=== PATIENT | male | born 1985 | race Caucasian/White ===

== ENCOUNTER 2024-02-17 20:38 | Emergency (ER) | payer OTHER ==
--- NOTE | 2024-02-17 20:55 | ED Physician Documentation ---
PD HPI ABD PAIN - Stated complaint Stated Complaint: ABD PX/DIARRHEA - Chief complaint Chief Complaint: Abd Pain - History obtained from History obtained from: Patient - Additional information Additional information: HPI from patient. Patient c/o generalized abdominal pain, diarrhea x 1 week. Pain is described as cramping and without exacerbating/ameliorating factors. Denies fever, denies blood in stool, denies black/tarry stool. Denies h/o similar symptoms. Tmax 99.1. Denies n/v, denies recent abx. Tonight he had stool which is described as nonbloody mucous. He has been tolerating PO without difficulty. Review of Systems Constitutional: denies: Fever, Chills, Sweats Cardiac: reports: Reviewed and negative Respiratory: reports: Reviewed and negative GI: reports: Abdominal Pain, Diarrhea. denies: Abdominal Swelling, Nausea, Vomiting, Constipation PD PAST MEDICAL HISTORY - Past Medical History Past Medical History: No Cardiovascular: None Respiratory: None Neuro: None Endocrine/Autoimmune: None GI: None : None HEENT: None Psych: None Musculoskeletal: None Derm: None - Past Surgical History Past Surgical History: No - Present Medications Home Medications: Ambulatory Orders Medication Instructions Recorded Confirmed No Known Home Medications 02/17/24 02/17/24 - Allergies Allergies/Adverse Reactions: Allergies Allergy/AdvReac Type Severity Reaction Status Date / Time No Known Drug Allergies Allergy Verified 02/17/24 20:49 - Social History Does the pt smoke?: No Smoking Status: Never smoker Does the pt drink ETOH?: Yes Does the pt have substance abuse?: No - Immunizations Immunizations are current?: Yes - POLST Patient has POLST: No PD ED PE NORMAL - Vitals Vital signs reviewed: Yes - General General: Alert and oriented X 3, No acute distress, Well developed/nourished - HEENT HEENT: Moist mucous membranes - Cardiac Cardiac: RRR, No murmur - Respiratory Respiratory: No respiratory distress, Clear bilaterally - Abdomen Abdomen: Normal bowel sounds, Soft, Non tender, Non distended Results - Vitals Vitals: Oxygen O2 Source Room air - Labs Labs: Laboratory Tests 02/17/24 02/17/24 02/17/24 20:40 20:53 20:53 WBC 12.9 H RBC 4.94 Hgb 15.1 Hct 45.3 MCV 91.7 MCH 30.6 MCHC 33.3 RDW 12.2 Plt Count 270 MPV 9.6 Neut # (Auto) 8.7 H Lymph # (Auto) 2.6 [place] # (Auto) 1.1 H Eos # (Auto) 0.4 Baso # (Auto) 0.1 Absolute Nucleated RBC 0.00 Nucleated RBC % 0.0 Sodium 138 Potassium 3.6 Chloride 100 L Carbon Dioxide 33 H Anion Gap 5.0 L BUN 19 Creatinine 1.3 Estimated GFR (MDRD) 62 L Glucose 90 Calcium 9.8 Total Bilirubin 0.3 AST 19 ALT 44 Alkaline Phosphatase 66 Total Protein 7.3 Albumin 4.2 Globulin 3.1 Albumin/Globulin Ratio 1.4 Lipase 25 Urine Color YELLOW Urine Clarity CLEAR Urine pH 6.0 Ur Specific [place] 1.025 Urine Protein NEGATIVE Urine Glucose (UA) NEGATIVE Urine Ketones NEGATIVE Urine Occult Blood NEGATIVE Urine Nitrite NEGATIVE Urine Bilirubin NEGATIVE Urine Urobilinogen 0.2 (NORMAL) Ur Leukocyte Esterase NEGATIVE Ur Microscopic Review NOT INDICATED Urine Culture Comments NOT INDICATED Stl C. diff Tox B Gene 02/17/24 21:50 WBC RBC Hgb Hct MCV MCH MCHC RDW Plt Count MPV Neut # (Auto) Lymph # (Auto) [place] # (Auto) Eos # (Auto) Baso # (Auto) Absolute Nucleated RBC Nucleated RBC % Sodium Potassium Chloride Carbon Dioxide Anion Gap BUN Creatinine Estimated GFR (MDRD) Glucose Calcium Total Bilirubin AST ALT Alkaline Phosphatase Total Protein Albumin Globulin Albumin/Globulin Ratio Lipase Urine Color Urine Clarity Urine pH Ur Specific [place] Urine Protein Urine Glucose (UA) Urine Ketones Urine Occult Blood Urine Nitrite Urine Bilirubin Urine Urobilinogen Ur Leukocyte Esterase Ur Microscopic Review Urine Culture Comments Stl C. diff Tox B Gene NEGATIVE PD Medical Decision Making - ED course Complexity details: reviewed results, re-evaluated patient, considered differential, d/w patient ED course: No concerning nor diagnostic findings on tonight's tests. Mild leukocytosis (WBC 12.9). Unremarkable ER abdominal panel, normal UA. He is in NAD and exam is benign including benign abdominal exam. C diff negative. Suspect viral enteritis. Given unremarkable blood tests and benign abdominal exam, emergent imaging (including CT) is not indicated at this time. Results d/w patient, return precautions reviewed, recommended follow up with PCP Departure - Departure Disposition: 01 Home, Self Care Clinical Impression: Diarrhea Condition: Good Instructions: ED Diarrhea Viral Comments: There were no concerning findings on tonight's tests. As we discussed, your white blood cell count was mildly elevated but not to a concerning extent. This is likely due to what is presumably an infectious cause of your diarrhea. There are other possible causes of your symptoms, but further testing on an emergency basis is not indicated at this time. Certainly, if your symptoms worsen, or if you develop new/concerning signs/symptoms (such as fever, blood in the stool, significant abdominal pain), you can always return to the emergency department for reevaluation. Otherwise, follow-up with your primary care provider, next available appointment, for reevaluation. Discharge Date/Time: 02/17/24 23:07
[2024-02-17 20:58] LABS: BASOPHILS # (AUTO) 0.1 10^3/uL (0.0-0.1); BASOPHILS % (AUTO) 0.5 %; EOSINOPHILS # (AUTO) 0.4 10^3/uL (0.0-0.7); EOSINOPHILS % (AUTO) 3.3 %; HCT - HEMATOCRIT 45.3 % (42.0-52.0); HGB - HEMOGLOBIN 15.1 g/dL (14.0-18.0); LYMPHOCYTES # (AUTO) 2.6 10^3/uL (1.5-3.5); LYMPHOCYTES % (AUTO) 19.9 %; MEAN CORPUSCULAR HEMOGLOBIN 30.6 pg (27.0-31.0); MEAN CORPUSCULAR HGB CONC 33.3 g/dL (32.0-36.0); MEAN CORPUSCULAR VOLUME 91.7 fL (80.0-94.0); MEAN PLATELET VOLUME 9.6 fL (7.4-11.4); MONOCYTES # (AUTO) 1.1 10^3/uL (0.0-1.0); MONOCYTES % (AUTO) 8.7 %; NEUTROPHILS # (AUTO) 8.7 10^3/uL (1.5-6.6); NEUTROPHILS % (AUTO) 67.3 %; PLT - PLATELET COUNT 270 10^3/uL (130-450); RED BLOOD COUNT 4.94 10^6/uL (4.70-6.10); RED CELL DISTRIBUTION WIDTH 12.2 % (12.0-15.0); WHITE BLOOD COUNT 12.9 x10^3/uL (4.8-10.8)
[2024-02-17 21:12] LABS: ALBUMIN 4.2 g/dL (3.2-5.5); ALBUMIN/GLOBULIN RATIO 1.4 (1.0-2.2); BILIRUBIN,TOTAL 0.3 mg/dL (0.2-1.0); CALCIUM 9.8 mg/dL (8.5-10.3); CREATININE 1.3 mg/dL (0.6-1.3); POTASSIUM 3.6 mmol/L (3.5-4.5); TOTAL PROTEIN 7.3 g/dL (6.4-8.9)
[2024-02-17 21:13] LABS: BILIRUBIN,URINE NEGATIVE (NEGATIVE); GLUCOSE, URINE (UA) NEGATIVE (NEGATIVE); KETONES,URINE (UA) NEGATIVE (NEGATIVE); LEUKOCYTE ESTERASE, URINE NEGATIVE (NEGATIVE); NITRITE,URINE NEGATIVE (NEGATIVE); OCCULT BLOOD,URINE NEGATIVE (NEGATIVE); PROTEIN,URINE NEGATIVE (NEGATIVE); UROBILINOGEN,URINE 0.2 (NORMAL) E.U./dL (NORMAL)
[2024-02-17 21:14] LABS: CLARITY,URINE CLEAR (CLEAR)
[2024-02-17] MEDS: LOPERAMIDE 2 MG CAPSULE PO STA (23:01)
[2024-02-17 23:12] VITALS: BP 148/94; O2SAT 100
== END 2024-02-17 23:07 | disposition home or self-care (01) ==
LOC: ED 20:38
DX: R19.7 Diarrhea, unspecified (principal)
CPT/HCPCS: 36415; 80053; 81003; 83690; 85025; 87493; 99283; A9270; 81001; 87086; 87507

== ENCOUNTER 2024-06-07 08:47 | Outpatient (CLI) | payer OTHER ==
--- NOTE | 2024-06-07 14:22 | Ultrasound Report ---
PROCEDURE: Chest INDICATIONS: BACK MASS TECHNIQUE: Real-time scanning was performed of subcutaneous area of concern on the patient's back COMPARISON: None. FINDINGS: There is an avascular nodule measuring 2.0 x 1.3 x 1.5 cm under the area of palpable abnor mality. This nodule is located partially within the skin surface and partially in the subcutaneous ti ssue. It demonstrates heterogeneous internal echoes, well-defined deep margin and good through transm ission. There is no connection to the skin surface. IMPRESSION: Probable sebaceous cyst measuring 2 cm underlying palpable area. No evidence of active inflammation. Reviewed by: Deneen Perea MD on 06/07/2024 2:21 PM PDT Approved by: Deneen Perea MD on 06/07/2024 2:21 PM PDT Station ID: [id number]
== END 2024-06-07 08:48 | disposition home or self-care (01) ==
LOC: DI 08:47
PROVIDERS: ATTEND Nurse Practitioner Family
DX: D48.5 Neoplasm of uncertain behavior of skin (principal); M75.111 Incomplete rotator cuff tear or rupture of right shoulder, not specified as traumatic; M19.011 Primary osteoarthritis, right shoulder; M25.411 Effusion, right shoulder; M75.51 Bursitis of right shoulder

== ENCOUNTER 2024-06-07 08:48 | Outpatient (CLI) | payer OTHER ==
--- NOTE | 2024-06-07 15:11 | MRI Report ---
PROCEDURE: Shoulder RT WO INDICATIONS: R SHOULDER PAIN TECHNIQUE: Noncontrast oblique coronal T2 fast spin echo with fat saturation, oblique sagittal T1 spin echo and T2 fast spin echo with fat saturation, axial T1 spin echo and T2 fast spin echo with fat saturation t hrough the shoulder. COMPARISON: None. FINDINGS: Image quality: Excellent. Rotator cuff: Low to moderate grade bursal surface partial-thickness tear involving distal supraspina tus at its insertion on humeral head is seen extending to musculotendinous junction. Distal infraspin atus and subscapularis tendons are intact. No full-thickness rotator cuff tendon rupture.. No rotato r cuff muscle atrophy on sagittal images. Bones and bursae: No bone marrow contusions or fractures. Mild acromioclavicular joint osteoarthriti s is seen with joint space narrowing and downward osteophyte formation depressing on musculotendinous junction of supraspinatus. Type I acromion, without an os acromiale. Small amount of joint fluid and subacromial subdeltoid bursal fluid is seen, no loose bodies. Capsule and soft tissues: There is fraying of superior anterior labrum with subtle T2 hyperintense si gnal suggestive of subtle superior anterior labral tear. The long head of the biceps tendon demonstra kelsey normal location and morphology. The rotator interval appears normal, without fibrosis. The arti cohumeral ligament is normal in thickness. IMPRESSION: 1. Low to moderate grade bursal surface partial-thickness tear involving distal supraspinatus extendi ng to musculotendinous junction. No full-thickness rotator cuff tendon rupture. 2. Mild acromioclavicular joint osteoarthritis. No fracture or dislocation. Small amount of joint eff usion and subacromial subdeltoid bursal fluid. No loose bodies. 3. Suggestion of subtle superior anterior labral tear. Reviewed by: Brandon Doherty MD on 06/07/2024 3:10 PM PDT Approved by: Brandon Doherty MD on 06/07/2024 3:10 PM PDT Station ID: [id number]
== END 2024-06-07 08:49 | disposition home or self-care (01) ==
LOC: DI 08:48
PROVIDERS: ATTEND Nurse Practitioner Family
DX: M75.111 Incomplete rotator cuff tear or rupture of right shoulder, not specified as traumatic (principal); M19.011 Primary osteoarthritis, right shoulder; M25.411 Effusion, right shoulder; M75.51 Bursitis of right shoulder

== ENCOUNTER 2024-08-02 15:00 | Outpatient (CLI) | payer OTHER ==
--- NOTE | 2024-08-02 17:38 | XRAY Report ---
PROCEDURE: Shoulder 2+V RT INDICATIONS: RIGHT SHOULDER PAIN TECHNIQUE: 4 views of the shoulder were acquired. COMPARISON: Shoulder MRI dated 06/07/2024. FINDINGS: Bones: No fractures or dislocations. No suspicious bony lesions. Visualized ribs appear intact. Soft tissues: No suspicious soft tissue calcifications. The visualized lungs are within normal limi ts. IMPRESSION: No shoulder fracture or dislocation. No gross soft tissue abnormalities. Reviewed by: Brandon Echeverria MD on 08/02/2024 5:37 PM PDT Approved by: Brandon Echeverria MD on 08/02/2024 5:37 PM PDT Station ID: [id number]
== END 2024-08-02 15:01 | disposition home or self-care (01) ==
LOC: DI 15:00
PROVIDERS: ATTEND Orthopaedic Surgery
DX: M25.511 Pain in right shoulder (principal)